=== PATIENT | male | born 1970 | race Caucasian/White ===

== ENCOUNTER 2017-01-01 11:15 | Emergency (ER) | payer OTHER ==
[~2017-01-01] VITALS: Ht 177.8 cm; Wt 78.8 kg
[2017-01-01 11:18] VITALS: Ht 177.8 cm; Wt 78.8 kg
[2017-01-01] MEDS ORDERED: KETO5DRO58 OP (13:48)
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
== END 2017-01-01 14:40 | disposition home or self-care (01) ==
LOC: FTE 11:15
DX: H57.8 Other specified disorders of eye and adnexa (principal)
CPT/HCPCS: 99283

== ENCOUNTER 2017-02-25 17:26 | Emergency (ER) | payer OTHER ==
[~2017-02-25] VITALS: Ht 182.9 cm; Wt 96.0 kg
[~2017-02-25 17:26] MED LIST: KETO5DRO58 OP
[2017-02-25 17:41] VITALS: Ht 182.9 cm; Wt 96.0 kg
[2017-02-25] MEDS ORDERED: SULF1TAB31 PO (18:38)
[2017-02-25] MEDS ORDERED: CEPH-443 PO (18:38)
--- NOTE | 2017-02-25 19:05 | ERD ---
ER Documentation Chief Complaint Date/Time DATE: 02/25/17 TIME: 19:01 Chief Complaint POSSIBLE ABSCESS TO LEFT AXILLA HPI This is a 46-year-old male presenting to the emergency department complaining of a lump in his left axilla for the past 2 months. Patient states that there is no pain however he described as nagging, rating it 4 out of 10. Patient states that he was seen by his primary care physician 2 months ago in which they told him to come to the ER to get a shot. Patient states that is just recently started getting a little bigger. He denies any redness, fevers. He denies taking any medications for this ROS All systems reviewed and are negative except as per history of present illness. Medications Home Meds Active Scripts Sulfamethoxazole/Trimethoprim* (Bactrim Ds* Tablet) 1 Each Tablet, 1 TAB PO BID for 5 Days, #14 TAB Prov:RAHUL TIPTON PA-C 02/25/17 Cephalexin* (Keflex*) 500 Mg Capsule, 500 MG PO QID for 10 Days, CAP Prov:RAHUL TIPTON PA-C 02/25/17 Ketotifen Fumarate (ZADITOR) 5 Ml Drops, 1 DROP OP Q12 Y for ITCHING, #1 BOTTLE Prov:AUSTIN FELIPE NP 01/01/17 Allergies Allergies: Coded Allergies: No Known Allergy (Unverified , 06/25/13) PMhx/Soc Medical and Surgical Hx: pt denies Medical Hx History of Surgery: Yes (tonsils) Anesthesia Reaction: No Hx Neurological Disorder: No Hx Respiratory Disorders: No Hx Cardiac Disorders: No Hx Psychiatric Problems: No Hx Miscellaneous Medical Probl: No Hx Alcohol Use: Yes (occasional) Hx Substance Use: No Hx Tobacco Use: No Smoking Status: Never smoker Physical Exam Vitals Vital Signs Date Time Temp Pulse Resp B/P Pulse Ox O2 Delivery O2 Flow Rate FiO2 02/25/17 17:41 98.5 87 18 120/76 96 Physical Exam General: WD/WN, in no apparent distress, non-toxic appearing HENT: NC/AT Eyes: Conjunctiva normal Neck: Supple Pulm: Clear to auscultation, normal labored breathing; no wheezing/rales/ rhonchi heard CV: Good capillary refill GI: Non-distended, no guarding Back: No masses Ext: No clubbing, cyanosis, or edema Neuro: Moves on all fours Skin: 1 x 1 cm papule in the left axilla, no evidence of fluctuance, erythema or induration No ulcerations or rashes noted. Psych: Normal mood Procedures/MDM This is a 46-year-old male presenting to the emergency department complaining of a lump in his left axilla for the past 2 months which is likely due to a sebaceous cyst versus lymph node versus other. On examination there was no evidence of erythema, fluctuance or induration so my suspicion for cellulitis or abscess is low. Patient is afebrile and he appears well, he has had this for 2 months and just started getting bigger. Since that mom has been started getting bigger patient will be empirically treated for an infected sebaceous cyst with Keflex and Bactrim outpatient. I discussed with him to follow-up with his primary care physician for further evaluation and management. I discussed return to the ER for any worsening signs or symptoms. Patient is stable for discharge for home. Precautions were given to return to the ER for any worsening sinus symptoms. He understands and agrees with plan Departure Diagnosis: Primary Impression: Sebaceous cyst Condition: Stable Patient Instructions: Sebaceous Cyst, Infected (Abx Tx), Sebaceous Cyst Additional Instructions: FOLLOW UP WITH YOUR PRIMARY CARE PHYSICIAN TOMORROW.Return to this facility if you are not improving as expected. Take all medicines as directed. Return to this facility if you are not improving as expected. RAHUL TIPTON PA-C February 25, 2017 19:05
== END 2017-02-25 19:15 | disposition home or self-care (01) ==
LOC: FTE 17:26
DX: L72.3 Sebaceous cyst (principal)

== ENCOUNTER 2017-04-16 09:04 | Emergency (ER) | payer OTHER ==
[~2017-04-16] VITALS: Ht 177.8 cm; Wt 80.0 kg
[~2017-04-16 09:04] MED LIST changes: +CEPH-443 PO; +SULF1TAB31 PO
[2017-04-16 09:07] VITALS: Ht 177.8 cm; Wt 80.0 kg
[2017-04-16] MEDS ORDERED: SOD CHLORIDE 0.9% 500 ML IV ONE (09:30)
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
[2017-04-16 09:57] LABS: ADD SCAN DIFF NO
[2017-04-16 10:05] LABS: BASOPHILS % 0.2 % (0.0-2.0); HEMATOCRIT 45.4 % (42.0-52.0); LYMPHOCYTES # 1.4 10^3/ul (0.8-2.9); LYMPHOCYTES % 34.8 % (15.0-51.0); MEAN CORPUSCULAR HEMOGLOBIN 30.9 pg (29.0-33.0); MEAN CORPUSCULAR HGB CONC 35.2 g/dl (32.0-37.0); MEAN CORPUSCULAR VOLUME 87.8 fl (82.0-101.0); MEAN PLATELET VOLUME 10.2 fl (7.4-10.4); MONOCYTE # 0.2 10^3/ul (0.3-0.9); MONOCYTES % 4.4 % (0.0-11.0); NEUTROPHIL # 2.4 10^3/ul (1.6-7.5); NEUTROPHILS % 59.4 % (39.0-77.0); PLATELET COUNT 162 10^3/UL (140-415); RED BLOOD COUNT 5.17 10^6/ul (4.70-6.10); RED CELL DISTRIBUTION WIDTH 11.6 % (11.5-14.5); WHITE BLOOD COUNT 4.1 10^3/ul (4.8-10.8)
--- NOTE | 2017-04-16 10:27 | RADRPT ---
PROCEDURE: Chest Radiograph. CLINICAL INDICATION: This of breath TECHNIQUE: 2 frontal views of the chest COMPARISON: Chest radiograph 07/15/2000 a FINDINGS: The cardiomediastinal silhouette is within normal limits. No infiltrate or effusion is seen. Th e bones are intact. IMPRESSION: 1. Unremarkable chest radiograph. RPTAT: AA .David Flores MD, MD Date Time Electronically viewed and signed by .David Flores MD, on 04/16/2017 10:27 .B/
--- NOTE | 2017-04-16 10:27 | RADRPT ---
PROCEDURE: CT Brain without contrast. CLINICAL INDICATION: dizziness TECHNIQUE: CT scan of the brain was performed on a multidetector high-resolution CT scan. Axial im aging was obtained of the brain without contrast administration. Coronal and sagittal reformatted i mages were obtained from the axial source images. Standard CT scan of the head without contrast prot ocols were performed. The total exam CTDI equals 42.43 mGy and the total exam DLP equals 720.23 mGy-cm. One or more of the following dose reduction techniques were used: - Automated exposure control. - Adjustment of the mA and/or kV according to patient size. Use of iterative reconstruction technique. COMPARISON: CT head without contrast and 02/2008 FINDINGS: The ventricular system and peripheral CSF spaces are unremarkable. Negative for intracranial masses hemorrhages or midline shift. The prince-white matter junction is unremarkable. The bones and ivy rium are intact. The paranasal sinuses visualized are unremarkable. Mastoids are unremarkable. IMPRESSION: Negative CT scan of the head without contrast. RPTAT:AAJJ Physician Gabby Date Time Electronically viewed and signed by Physician Gabby on 04/16/2017 10:26 BM/
[2017-04-16 10:30] LABS: ANION GAP 21 (8-16); BLOOD UREA NITROGEN 14 mg/dl (7-20); CALCIUM 9.6 mg/dl (8.4-10.2); CARBON DIOXIDE 27 mmol/L (21-31); CHLORIDE 99 mmol/L (97-110); GLUCOSE 93 mg/dl (70-220); POTASSIUM 4.2 mmol/L (3.5-5.1); SODIUM 143 mmol/L (135-144)
[2017-04-16 10:44] LABS: TROPONIN-I < 0.012 ng/ml (0.00-0.12)
[2017-04-16 11:45] VITALS: BP 104/64; PULSE 64; RESP 20
== END 2017-04-16 11:45 | disposition home or self-care (01) ==
LOC: FTE 09:04
DX: R68.89 Other general symptoms and signs (principal); R42 Dizziness and giddiness
CPT/HCPCS: 70450; 71010; 80048; 84484; 85025; 93005; J7040; Z7502

== ENCOUNTER 2017-06-06 08:55 | Day surgery (SDC) | payer OTHER ==
[~2017-06-06] VITALS: Ht 188 cm; Wt 93.0 kg
[~2017-06-06 08:55] MED LIST changes: +BUPIVACAINE 0.25% (MPF) 30 ML INJ INJ ONE
[2017-06-06] MEDS ORDERED: CEFAZOLIN 2 GM/50 ML (PMX) 50 ML IVPB ONE (09:30)
[2017-06-06] MEDS ORDERED: SOD CHLORIDE 0.9% 1,000 ML IV SCH (09:30)
[2017-06-06 09:44] VITALS: BP 95/69; PULSE 65; RESP 20
[2017-06-06] MEDS ORDERED: BUPIVACAINE 0.25% (MPF) 30 ML INJ ONE (12:13)
[2017-06-06] MEDS ORDERED: LIDOCAINE 2% (MDV) 20 ML INJ ONE (12:13)
[2017-06-06] MEDS ORDERED: FENTAnyl 50 MCG/ML VIAL ONE (12:24)
[2017-06-06] MEDS ORDERED: MIDAZOLAM 1 MG/ML 2 ML INJ ONE (12:25)
[2017-06-06] MEDS ORDERED: CEFAZOLIN 1 GM INJ ONE (12:25)
[2017-06-06] MEDS ORDERED: BUPIVACAINE 0.5% (SDV) 30 ML INJ INJ ONE (12:41)
[2017-06-06] MEDS ORDERED: LIDOCAINE 2% (MDV) 20 ML INJ INJ ONE (12:41)
[2017-06-06 12:55] VITALS: BP 117/76; PULSE 73; RESP 18
--- NOTE | 2017-06-06 12:56 | OPR ---
Date/Time of Note Date/Time of Note DATE: 06/06/17 TIME: 12:53 Operative Report Procedure Date: Jun 06, 2017 Preoperative Diagnosis left axillary mass Postoperative Diagnosis same Operation Performed 1.excision of left axillary mass 4 x 2 cm mass 4 cm incision 2. localized adjacent tissue transfer with the use of skin flaps 8 sq cm defect 3. therapeutic injection of subcutaneous marcaine cpt code 23822 Surgeon: Rosina HUTCHINS Anesthesia Type: MAC Estimated Blood Loss: 0 - 10 ml's Specimens left axillary mass Grafts/Implants: none Complications: no Indications This is a 39-year-old male with a left axillary mass. He requires surgical excision. Risks alternatives benefits and percent were discussed the patient. Patient's best understanding consents to the operation. Procedure Description Patient taken to the OR and prepped and draped in usual sterile fashion. Surgical timeout was performed. IV antibiotics given. Left axillary mass is infiltrated with subcutaneous Marcaine therapeutically. 15 blade is used to make incision to excise the mass en bloc along with some part of the skin as the mass was involving the skin. Dissection cautery was carried onto the base of the mass and fully excised. There is good hemostasis. Due to the tissue defect localized adjacent tissue transfer with these of skin flaps was performed. Multilayer closure with interrupted 3-0 Vicryl and skin minerva. Dry dressings were applied. Rosina HUTCHINS Jun 06, 2017 12:56
[2017-06-06] MEDS ORDERED: HYDROCODONE/APAP (5/325) TAB PO ONE (13:00)
[2017-06-06 13:02] VITALS: BP 112/81; PULSE 64; RESP 16
[2017-06-06 13:06] VITALS: Ht 188 cm; Wt 93.0 kg
[2017-06-06 13:07] VITALS: BP 106/83; PULSE 66; RESP 12
[2017-06-06 13:12] VITALS: BP 112/77; PULSE 66; RESP 17
[2017-06-06 13:25] VITALS: BP 118/78; PULSE 67; RESP 18
== END 2017-06-06 14:10 | disposition home or self-care (01) ==
LOC: SDS 08:55
PROVIDERS: ATTEND Surgery
DX: I86.8 Varicose veins of other specified sites (principal); R22.32 Localized swelling, mass and lump, left upper limb
CPT/HCPCS: 14020; 88307; J0690; J2250; J3010; Z7512; Z7610

== ENCOUNTER 2017-08-27 10:13 | Emergency (ER) | payer OTHER ==
[~2017-08-27] VITALS: Ht 182.9 cm; Wt 96.3 kg
[2017-08-27 10:16] VITALS: Ht 182.9 cm; Wt 96.3 kg
--- NOTE | 2017-08-27 12:19 | ERD ---
ER Documentation Chief Complaint Chief Complaint CHEST CONGESTION WITH COUGH AND DISCOMFORT HPI 47-year-old male who presents emergency department for chest congestion with cough and discomfort for about 3 weeks. Stated that on his first week he has phlegm on his cough. Denies headache, dizziness, blurred vision, neck pain, shoulder pain, difficulty swallowing, loss of appetite, abdominal pain, nausea, vomiting, constipation, dysuria, urinary symptoms, loss of bowel bladder control, recent long travel, recent exposure to any illness, numbness or tingling sensation, difficulty walking, fever, chills. No known drug allergies. No past medical history. No surgeries. 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 Denies smoking, use of alcoholic beverages, use of illegal drugs. ROS All systems reviewed and are negative except as per history of present illness. Medications Home Meds Active Scripts Benzonatate* (Tessalon Perle*) 100 Mg Capsule, 200 MG PO Q8H Y for COUGH, #20 CAP Prov:RAFA LI 08/27/17 Albuterol Sulfate* (Proair HFA*) 8.5 Gm Hfa.aer.ad, 2 PUFF INH Q4, #1 INHALER Prov:RAFA LI 08/27/17 Azithromycin* (Zithromax*) 250 Mg Tablet, 250 MG PO .ZPACK DIRECTED, #6 TAB TAKE 500 MG (2 TABS) THE FIRST DAY THEN 250 MG (1 TAB) DAYS 2-5 Prov:RAFA LI 08/27/17 Allergies Allergies: Coded Allergies: Penicillins (Verified Allergy, Severe, 06/06/17) PMhx/Soc History of Surgery: Yes (RT HIP SURGERY) Anesthesia Reaction: No Hx Neurological Disorder: No Hx Respiratory Disorders: No Hx Cardiac Disorders: No Hx Psychiatric Problems: No Hx Miscellaneous Medical Probl: Yes (LT AXILLARY MASS) Hx Alcohol Use: No Hx Substance Use: No Hx Tobacco Use: No Smoking Status: Never smoker Physical Exam Vitals Vital Signs Date Time Temp Pulse Resp B/P Pulse Ox O2 Delivery O2 Flow Rate FiO2 08/27/17 10:16 98.2 97 18 116/68 97 Physical Exam Const: [] Head: Atraumatic Eyes: Normal Conjunctiva ENT: Normal External Ears, Nose and Mouth. Neck: Full range of motion..~ No meningismus. Resp: Clear to auscultation bilaterally Cardio: Regular rate and rhythm, no murmurs Abd: Soft, non tender, non distended. Normal bowel sounds Skin: No petechiae or rashes Back: No midline or flank tenderness Ext: No cyanosis, or edema Neur: Awake and alert Psych: Normal Mood and Affect Procedures/MDM 47-year-old male who presents emergency department for chest congestion with cough and discomfort for about 3 weeks. Stated that on his first week he has phlegm on his cough. Denies headache, dizziness, blurred vision, neck pain, shoulder pain, difficulty swallowing, loss of appetite, abdominal pain, nausea, vomiting, constipation, dysuria, urinary symptoms, loss of bowel bladder control, recent long travel, recent exposure to any illness, numbness or tingling sensation, difficulty walking, fever, chills. No known drug allergies. No past medical history. No surgeries. 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 Denies smoking, use of alcoholic beverages, use of illegal drugs. Physical exam: Lung sounds are clear to auscultation. Patient agreed with the diagnostic test, treatment, plan of care. EKG: Sinus rhythm with short LA. Ventricular rate of 86 bpm. No evidence of acute myocardial infarction. No STEMI. No evidence of ischemia. Chest x-ray: No evidence of acute cardiopulmonary disease. Differential diagnosis: Acute myocardial infarction versus acute coronary syndrome versus pneumonia versus bronchitis versus upper respiratory infection. Final diagnosis: Acute bronchitis. Prescription: Azithromycin. Pro-air. Asim Raphael. Follow-up with primary care physician the next 24-48 hours. Come back here in the emergency department for any new symptoms or any worsening symptoms. All questions and concerns are answered. Patient verbalized understanding and agreed with the plan of care. Hemodynamically stable on discharge. Departure Diagnosis: Primary Impression: Acute bronchitis Condition: Stable Additional Instructions: Follow-up with primary care physician the next 24-48 hours. Come back here in the emergency department for any new symptoms or any worsening symptoms. All questions and concerns are answered. Patient verbalized understanding and agreed with the plan of care. RAFA LI Aug 27, 2017 12:19
--- NOTE | 2017-08-27 13:06 | RADRPT ---
PROCEDURE: XR Chest. CLINICAL INDICATION: Shortness of breath TECHNIQUE: Single portable view of the chest was obtained COMPARISON: April 16, 2017 FINDINGS: The trachea is midline. The cardiac silhouette and pulmonary vascularity are within normal limits. T he lungs are clear. The costophrenic angles are sharp. IMPRESSION: 1. No evidence of acute cardiopulmonary disease. RPTAT: [facility]APP Physician Andre Date Time Electronically viewed and signed by Tasneem Mota Physician on 08/27/2017 13:06 AKILAH/
[2017-08-27] MEDS ORDERED: BENZ100C70 PO (13:29)
[2017-08-27] MEDS ORDERED: AZIT250T94 PO (13:29)
[2017-08-27] MEDS ORDERED: ALBU8.5H3 INH (13:29)
== END 2017-08-27 13:40 | disposition home or self-care (01) ==
LOC: FTE 10:13
DX: J20.9 Acute bronchitis, unspecified (principal); R07.9 Chest pain, unspecified
CPT/HCPCS: 71010; 93005; Z7502

== ENCOUNTER 2018-06-07 10:08 | Emergency (ER) | END 2018-06-07 12:29 | disposition home or self-care (01) ==

== ENCOUNTER 2018-09-12 06:21 | Emergency (ER) | END 2018-09-12 09:10 | disposition home or self-care (01) ==

== ENCOUNTER 2019-03-06 10:43 | Emergency (ER) | payer OTHER ==
[~2019-03-06] VITALS: Wt 90.0 kg
[~2019-03-06 10:43] MED LIST changes: +ALBU8.5H8 INH; +AZIT250T PO; +BENZ-6 PO; -BUPIVACAINE 0.25% (MPF) 30 ML INJ INJ ONE; -CEPH-443 PO; +FLUT9.9S NASAL; -KETO5DRO58 OP; +LEVO500T10 PO; +MECL12.574 PO; +PRED20TA PO; -SULF1TAB31 PO
[2019-03-06 10:45] VITALS: Wt 90.0 kg
[2019-03-06] MEDS ORDERED: KETOROLAC 30 MG INJ IM STA (11:18)
[2019-03-06] MEDS ORDERED: METHOCARBAMOL 750 MG TAB PO ONE (11:30)
[2019-03-06] MEDS ORDERED: IBUP-1561 PO (12:29)
[2019-03-06] MEDS ORDERED: ACET-141 PO (12:29)
[2019-03-06] MEDS ORDERED: METH750T93 PO (12:29)
--- NOTE | 2019-03-06 12:43 | ERD ---
ER Documentation Chief Complaint Chief Complaint LOWER BACK PAIN X 7 DAYS HPI 48-year-old male presents for back pain x1 week. The pain is 10 out of 10 with movement. He states that he has 0/10 to pain with sitting or without movement. The pain is described as sharp, nonradiating. Pain is worse with movement. D enies any fevers or chills. Denies any recent infection. Denies any recent back procedures. No history of cancer noted. He does have chronic mid back pain for many years. He states that he never had imaging done. 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 He has been using [place] balm, warm compresses with mild relief. He has not taken any medications for the pain. Denies loss of bowel or bladder function. Denies chest pain or shortness of breath. No significant past medical history otherwise. No other modifying factors noted, no other treatments tried at home. ROS All systems reviewed and are negative except as per history of present illness. Medications Home Meds Active Scripts Methocarbamol* (Robaxin*) 750 Mg Tablet, 750 MG PO TID PRN for MUSCLE SPASMS, #30 TAB Prov:MAYUR WYNNE DO 03/06/19 Acetaminophen* (Acetaminophen*) 500 MG Extra Strength Tablet, 500 MG PO Q4H PRN for PAIN AND OR ELEVATED TEMP, #30 TAB Prov:MAYUR WYNNE DO 03/06/19 Ibuprofen* (Motrin*) 400 Mg Tab, 400 MG PO Q6H PRN for PAIN AND OR ELEVATED TEMP, #30 TAB Prov:MAYUR WYNNE DO 03/06/19 Meclizine Hcl* (Antivert*) 12.5 Mg Tab, 12.5 MG PO Q6H PRN for DIZZINESS, #40 TAB Prov:PEACE BARNES MD 09/12/18 Fluticasone Propionate (Flonase Allergy Relief) 9.9 Ml [place].susp, 1 SPRAY NASAL DAILY, #1 BOTTLE TO EACH NOSTRIL Prov:LANCE GALDAMEZ MD 06/07/18 Prednisone* (Prednisone*) 20 Mg Tab, 40 MG PO DAILY for 4 Days, TAB Prov:LANCE GALDAMEZ MD 06/07/18 Levofloxacin* (Levofloxacin*) 500 Mg Tablet, 500 MG PO DAILY, #10 TAB Prov:LANCE GALDAMEZ MD 06/07/18 Benzonatate* (Tessalon Perle*) 100 Mg Capsule, 200 MG PO Q8H PRN for COUGH, #20 CAP Prov:RAFA LI 08/27/17 Albuterol Sulfate* (Proair HFA*) 8.5 Gm Hfa.aer.ad, 2 PUFF INH Q4, #1 INHALER Prov:RAFA LI 08/27/17 Azithromycin* (Zithromax*) 250 Mg Tablet, 250 MG PO .ZPACK DIRECTED, #6 TAB TAKE 500 MG (2 TABS) THE FIRST DAY THEN 250 MG (1 TAB) DAYS 2-5 Prov:RAFA LI 08/27/17 Allergies Allergies: Coded Allergies: Penicillins (Verified Allergy, Severe, 06/06/17) PMhx/Soc Medical and Surgical Hx: pt denies Medical Hx, pt denies Surgical Hx History of Surgery: Yes (left axillary lymph nodes) Anesthesia Reaction: No Hx Neurological Disorder: No Hx Respiratory Disorders: Yes (PNEUMONIA) Hx Cardiac Disorders: No Hx Psychiatric Problems: No Hx Miscellaneous Medical Probl: No Hx Alcohol Use: No Hx Substance Use: No Hx Tobacco Use: No Smoking Status: Never smoker FmHx Family History: No coronary disease Physical Exam Vitals Vital Signs Date Temp Pulse Resp B/P (MAP) Pulse Ox O2 O2 Flow FiO2 Time Delivery Rate 03/06/19 98.0 89 18 119/67 99 10:45 (84) Physical Exam Const: No acute distress Neck: Full range of motion. No meningismus. no midline tenderness Resp: Clear to auscultation bilaterally Cardio: Regular rate and rhythm, no murmurs, bilateral radial and dorsalis pedis pulses intact and equal Abd: Soft, non tender, non distended. Normal bowel sounds, no abdominal bruit noted Skin: No petechiae or rashes Back: no point tenderness, there is mid back tenderness palpation on the right paravertebral muscle, no midline tenderness Ext: No cyanosis, or edema, 5/5 muscle strength bilateral upper and lower extremities Neur: Awake and alert, bilateral upper and lower extremity sensation intact Psych: Normal Mood and Affect Results 24 hrs Current Medications Medications Dose Sig/Tammy Start Time Status Last (Trade) Ordered Route PRN Stop Time Admin Dose Reason Admin Ketorolac 30 mg ONCE STAT 03/06/19 DC 03/06/19 Tromethamine IM 11:18 11:26 (Toradol) 03/06/19 11:19 750 mg ONCE ONCE 03/06/19 DC 03/06/19 Methocarbamol PO 11:30 11:25 (Robaxin) 03/06/19 11:31 Procedures/MDM Medical Decision Making: Differential diagnosis includes but not limited to muscle strain, ligamentous sprain, epidural abscess, osteomyelitis, osteoarthritis, herniated disc, compression fracture, aortic aneurysm, kidney stone, pyelonephritis, pancreatitis. Patient appeared well on physical examination. Nontoxic appearing. Patient neurovascularly intact Patient appeared well on physical examination. Nontoxic appearing. No recent back procedure, therefore low suspicion for epidural abscess No recent infection, therefore low suspicion for osteomyelitis No trauma, therefore low suspicion for fracture No chest pain, abdominal pain and no pulse deficits noted, therefore low suspicion for aortic dissection or pancreatitis No flank pain or fever to suggest pyelonephritis or kidney stone Imaging: X-ray T-Spine 2V Interpreted by me: Bones: No fracture or lytic lesions Joints: No dislocation Foreign body: None X-ray LS-Spine 3V Interpreted by me: Bones: No fracture, or lytic lesions Joints: No dislocation Foreign body: None Degenerative changes noted of the T-spine and L-spine. ED course: Patient was given Toradol and Robaxin. Symptoms improved with treatment. Prescription(s): Patient given prescription for supportive medication(s). Patient advised to follow up with PCP in 1-2 days. Patient advised to return to ED for new or worsening symptoms. Patient stable on discharge from the ED. Disclaimer: Inadvertent spelling and grammatical errors are likely due to EHR/dictation software use and do not reflect on the overall quality of patient care. Also, please note that the electronic time recorded on this note does not necessarily reflect the actual time of the patient encounter. Musculoskeletal Discharge MDM: Patient's spine symptoms have stabilized while they have been evaluated in the department and are appropriate for outpatient work up. No evidence of cauda equina, cord compression, infiltrative, or infectious etiology. Departure Diagnosis: Primary Impression: Back pain Back pain location: thoracic back pain Chronicity: acute Back pain laterality: unspecified Qualified Codes: M54.6 - Pain in thoracic spine Condition: Fair Patient Instructions: Back Pain (Acute Or Chronic) Referrals: VINICIO ROWLAND (PCP) Additional Instructions: Call your primary care doctor TOMORROW for an appointment during the next 1-2 days.See the doctor sooner or return here if your condition worsens before your appointment time. MAYUR WYNNE DO March 06, 2019 12:43
[2019-03-06 13:45] VITALS: BP 110/71; PULSE 72; RESP 18
== END 2019-03-06 14:00 | disposition home or self-care (01) ==
LOC: FTE 10:43
DX: M54.6 Pain in thoracic spine (principal)
CPT/HCPCS: 72072; 72100; J1885; Z7610; 96372